=== PATIENT | male | born 1990 | race Caucasian/White ===

== ENCOUNTER 2022-01-26 08:42 | Outpatient (CLI) | payer BC, SELFPAY ==
[2022-01-26 09:45] LABS: Hematocrit 42.3 % (37.0-53.0); Hemoglobin* 14.4 gm/dL (13.5-17.5); Mean Corpuscular HGB Conc 34 gm/dL (32-36); Mean Corpuscular Hemoglobin 32 pg (26-34); Mean Corpuscular Volume 93 fL (80-100); Platelet Count* 249 K/uL (140-440); Red Blood Count 4.57 m/uL (4.30-5.90); Slide Review Reflex No; White Blood Count* 5.27 K/uL (4.50-11.00)
[2022-01-26 13:52] LABS: Albumin* 4.8 g/dL (3.3-5.0); Chloride* 102 mmol/L (96-114); Sodium* 137 mmol/L (135-149)
[2022-01-26 13:53] LABS: Potassium* 4.4 mmol/L (3.6-5.1)
[2022-01-26 13:55] LABS: Aspartate Amino Transferase* 29 U/L (12-35); Bilirubin Total* 1.4 mg/dL (0.1-1.5); Blood Urea Nitrogen* 22 mg/dL (5-24); Carbon Dioxide* 26 mmol/L (20-32); Cholesterol* 206 mg/dL (90-199); Creatinine* 1.1 mg/dL (0.5-1.5); Estimated Glomerular Filt Rate 93 ml/min; Glucose* 105 mg/dL (60-115); Total Protein* 7.1 g/dL (6.0-8.3); Triglycerides* 74 mg/dL (40-149)
[2022-01-26 13:56] LABS: Alanine Aminotransferase* 27 U/L (4-50); Alkaline Phosphatase* 49 U/L (40-150); Calcium* 9.2 mg/dL (8.4-10.6); HDL Cholesterol* 52 mg/dL (>=40); LDL Cholesterol Calculated 139 mg/dL (<100)
== END 2022-01-26 08:43 | disposition home or self-care (01) ==
PROVIDERS: PCP Family Medicine; Visit Provider Family Medicine
DX: Z00.00 Encounter for general adult medical examination without abnormal findings (principal); R00.1 Bradycardia, unspecified; Z13.6 Encounter for screening for cardiovascular disorders
CPT/HCPCS: 80053; 80061; 85027